=== PATIENT | male | born 1965 | race Caucasian/White ===

== ENCOUNTER 2017-12-19 07:15 | Day surgery (SDC) | payer OTHER ==
[~2017-12-19] VITALS: Ht 166.4 cm; Wt 80.0 kg
[~2017-12-19 07:15] MED LIST: ASPI81 PO; ATOR40TA28 PO; LISI-661 PO; METF500T4 PO; METO25 PO; RANO500T3 PO
[2017-12-19] MEDS ORDERED: LIDOCAINE HCL/PF 2% 5 ML VIAL IM ONE (07:16)
[2017-12-19] MEDS ORDERED: ONDANSETRON HCL 4 MG/2 ML VIAL IVP ONE (07:16)
[2017-12-19] MEDS ORDERED: FentaNYL CITRATE-PF 100 MCG/2 ML VIAL IVP ONE (07:16)
[2017-12-19] MEDS ORDERED: DEXAMETHASONE SOD PHOS 4 MG/ML VIAL IVP ONE (07:16)
[2017-12-19] MEDS ORDERED: MIDAZOLAM HCL 2 MG/2 ML VIAL IVP ONE (07:16)
[2017-12-19] MEDS ORDERED: SUCCINYLCHOLINE CHLORIDE 20 MG/ML 10 ML VIAL IVP ONE (07:16)
[2017-12-19] MEDS ORDERED: PROPOFOL 1% 20 ML VIAL IVP ONE (07:16)
[2017-12-19] MEDS ORDERED: RINGERS SOLUTION,LACTATED 1,000 ML IV ONE ×2 (07:30→07:33)
[2017-12-19] MEDS ORDERED: CeFAZolin 2 GM/DEXTROSE 50 ML IV ONE ×2 (07:34→09:00)
[2017-12-19 08:14] LABS: ANION GAP 9 mmol/L (8-16); CALCIUM, TOTAL 8.5 mg/dL (8.8-10.5); CARBON DIOXIDE 26 mmol/L (22-29); CHLORIDE 103 mmol/L (98-107); CREATININE 0.82 mg/dL (0.60-1.30); GLOMERULAR FILTR. RATE CALC > 60 mL/min (>60); GLUCOSE,RANDOM 109 mg/dL (70-110); SODIUM SERUM 138 mmol/L (136-145); UREA NITROGEN, BLOOD 11 mg/dL (7-18)
[2017-12-19 08:17] LABS: BASOPHILS % (AUTO) 0.6 % (0.0-2.0); HEMATOCRIT 42.9 % (41-53); HEMOGLOBIN 14.7 g/dL (13.5-17.5); LYMPHOCYTES # (AUTO) 1.2 K/uL (1.0-4.8); LYMPHOCYTES % (AUTO) 23.6 % (22.0-44.0); MEAN CORPUSCULAR HEMOGLOBIN 27.8 pg (26.0-34.0); MEAN CORPUSCULAR HGB CONC 34.2 G/dL (31.0-37.0); MEAN CORPUSCULAR VOLUME 81 fL (80-100); MONOCYTES # (AUTO) 0.4 K/uL (0.1-1.0); NEUTROPHILS # (AUTO) 3.3 K/uL (1.8-7.7); NEUTROPHILS % (AUTO) 63.8 % (40.0-70.0); PLATELET COUNT (AUTO) 211 K/uL (150-450); RED BLOOD CELL COUNT(AUTO) 5.28 MIL/uL (4.50-5.90); RED CELL DISTRIBUTION WIDTH 13.2 % (11.5-14.5)
[2017-12-19 08:20] LABS: PROTHROMBIN TIME 10.2 SEC (9.4-11.6)
[2017-12-19] MEDS ORDERED: LIDOCAINE HCL 2%/EPI 1:200,000/PF 20 ML VIAL ONE (08:44)
[2017-12-19] MEDS ORDERED: BUPIVACAINE HCL/PF 0.5% 30 ML VIAL ONE (08:44)
[2017-12-19] MEDS ORDERED: GUM MASTIC/STORAX/MSAL/ALCOHOL LIQUID 0.67 ML VIAL TP ONE (08:44)
[2017-12-19] MEDS ORDERED: FentaNYL CITRATE-PF 100 MCG/2 ML VIAL IVP PRN (10:45)
[2017-12-19] MEDS ORDERED: MEPERIDINE-PF 25 MG/ML SYRINGE IVP PRN (10:45)
[2017-12-19] MEDS ORDERED: HYDROmorphone 2 MG/ML SYRINGE IVP PRN (10:45)
[2017-12-19] MEDS ORDERED: IPRATROPIUM BROMIDE 0.5 MG/2.5 ML NEB SOLUTION NEB STA (10:48)
[2017-12-19] MEDS ORDERED: ALBUTEROL SULFATE 2.5 MG/0.5 ML NEB SOLUTION NEB STA (10:48)
[2017-12-19] MEDS ORDERED: ACETAMINOPHEN 500 MG TABLET PO PRN (11:00)
[2017-12-19] MEDS ORDERED: IBUPROFEN 600 MG TABLET PO PRN (11:00)
[2017-12-19] MEDS ORDERED: 0.9% SODIUM CHLORIDE 5 ML NEB SOLUTION NEB ONE (11:01)
[2017-12-19] MEDS ORDERED: IPRATROPIUM BROMIDE 0.5 MG/2.5 ML NEB SOLUTION NEB ONE (11:01)
[2017-12-19] MEDS ORDERED: ALBUTEROL SULFATE 2.5 MG/0.5 ML NEB SOLUTION NEB ONE (11:01)
[2017-12-19] MEDS ORDERED: OXYGEN THERAPY IH SCH (20:00)
== END 2017-12-19 13:00 | disposition home or self-care (01) ==
LOC: SURGERY 07:15
PROVIDERS: ATTEND Surgery
DX: M79.89 Other specified soft tissue disorders (principal); E78.5 Hyperlipidemia, unspecified; E11.9 Type 2 diabetes mellitus without complications; G47.33 Obstructive sleep apnea (adult) (pediatric); F10.21 Alcohol dependence, in remission; I11.9 Hypertensive heart disease without heart failure; J45.909 Unspecified asthma, uncomplicated; Z86.718 Personal history of other venous thrombosis and embolism; Z79.84 Long term (current) use of oral hypoglycemic drugs; Z79.82 Long term (current) use of aspirin; Z79.899 Other long term (current) drug therapy
CPT/HCPCS: 21931; 36415; 80048; 85025; 85610; 85730; 88304; 94640; J0330; J0690; J1100; J2250; J2405; J2704; J3010; J3490 ×2; J7120